=== PATIENT | male | born 1980 | race Caucasian/White ===

== ENCOUNTER 2018-10-27 22:07 | Emergency (ER) | payer BC ==
[~2018-10-27] VITALS: Ht 180.3 cm; Wt 97.1 kg
[2018-10-27 22:15] VITALS: Ht 180.3 cm; Wt 97.1 kg
[2018-10-28 00:31] VITALS: BP 136/87
== END 2018-10-28 00:31 | disposition home or self-care (01) ==
LOC: ED 22:07
DX: R10.13 Epigastric pain (principal); I10 Essential (primary) hypertension; Z88.0 Allergy status to penicillin
CPT/HCPCS: Q0092